=== PATIENT | female | born 1970 | race Two or more races ===

== ENCOUNTER 2022-08-17 09:45 | Inpatient (IN) | payer OTHER ==
[~2022-08-17] VITALS: Ht 152.4 cm; Wt 88.5 kg
[2022-08-17] MEDS ORDERED: GLUMETZA1000 MG (11:43)
[2022-08-17] MEDS ORDERED: NEXIUM40 M1 PO (11:44)
== END 2022-08-25 18:35 | disposition home or self-care (01) | DRG 742 ==
LOC: SURH 09:45 → O/R 08-19 07:56 → OB/GYN 08-19 07:56 → SURH 08-19 09:00 → OB/GYN 08-19 16:13
PROVIDERS: Surgery; ADMIT Specialist; ATTEND Specialist
PROC: 0UT20ZZ Resection of Bilateral Ovaries, Open Approach (ICD-10-PCS; 2022-08-19)
PROC: 0DNW0ZZ Release Peritoneum, Open Approach (ICD-10-PCS; 2022-08-19)
PROC: 0TN70ZZ Release Left Ureter, Open Approach (ICD-10-PCS; 2022-08-19)
PROC: 0TN60ZZ Release Right Ureter, Open Approach (ICD-10-PCS; 2022-08-19)
PROC: 0WBH0ZZ Excision of Retroperitoneum, Open Approach (ICD-10-PCS; 2022-08-19)
PROC: 0WUF0JZ Supplement Abdominal Wall with Synthetic Substitute, Open Approach (ICD-10-PCS; 2022-08-19)
PROC: 0KXL0ZZ Transfer Left Abdomen Muscle, Open Approach (ICD-10-PCS; 2022-08-19)
PROC: 0KXK0ZZ Transfer Right Abdomen Muscle, Open Approach (ICD-10-PCS; 2022-08-19)
PROC: 0JX80ZZ Transfer Abdomen Subcutaneous Tissue and Fascia, Open Approach (ICD-10-PCS; 2022-08-19)
PROC: 0UT90ZZ Resection of Uterus, Open Approach (ICD-10-PCS; principal; 2022-08-19 09:00)
PROC: 0UT70ZZ Resection of Bilateral Fallopian Tubes, Open Approach (ICD-10-PCS; 2022-08-19 09:00)
DX: D25.1 Intramural leiomyoma of uterus (principal); K43.0 Incisional hernia with obstruction, without gangrene; D25.2 Subserosal leiomyoma of uterus; N73.6 Female pelvic peritoneal adhesions (postinfective); N85.01 Benign endometrial hyperplasia; N83.01 Follicular cyst of right ovary; L91.0 Hypertrophic scar; Z20.822 Contact with and (suspected) exposure to COVID-19

== ENCOUNTER 2022-10-31 07:19 | Emergency (ER) | payer OTHER ==
[~2022-10-31] VITALS: Ht 162.6 cm; Wt 87.5 kg
[~2022-10-31 07:19] MED LIST: GLUMETZA1000 MG; NEXIUM40 M1 PO
== END 2022-10-31 13:07 | disposition home or self-care (01) ==
LOC: ER 07:19
DX: K52.9 Noninfective gastroenteritis and colitis, unspecified (principal); R10.9 Unspecified abdominal pain; Z20.822 Contact with and (suspected) exposure to COVID-19; Z88.0 Allergy status to penicillin; E11.9 Type 2 diabetes mellitus without complications; Z79.84 Long term (current) use of oral hypoglycemic drugs